=== PATIENT | female | born 1975 | race Caucasian/White ===

== ENCOUNTER 2018-12-25 01:37 | Emergency (ER) | payer MEDICAID ==
[~2018-12-25] VITALS: Ht 152.4 cm; Wt 66.0 kg
[2018-12-25 04:15] VITALS: BP 137/75
== END 2018-12-25 04:23 | disposition home or self-care (01) ==
LOC: ER 01:37
DX: S50.01XA Contusion of right elbow, initial encounter (principal); W18.39XA Other fall on same level, initial encounter; Y93.89 Activity, other specified; Y92.89 Other specified places as the place of occurrence of the external cause; Y99.8 Other external cause status
CPT/HCPCS: 73080; 81025; 99283; Z7610